=== PATIENT | female | born 1935 | race Caucasian/White ===

== ENCOUNTER 2016-07-03 17:02 | Emergency (ER) | payer MEDICARE ==
[~2016-07-03] VITALS: Ht 165.1 cm; Wt 60.0 kg
[~2016-07-03 17:02] MED LIST: AMBI5TAB; EZET10; SYNT25TA; TAB-TAB
[2016-07-03 17:05] VITALS: BP 126/72; PULSE 97; RESP 18; TEMP 98.5; O2SAT 95
[2016-07-03] MEDS ORDERED: MULTTAB67 PO (17:19)
[2016-07-03] MEDS ORDERED: LEVO25TA4 PO (17:19)
[2016-07-03] MEDS ORDERED: ZETI10TA5 PO (17:19)
[2016-07-03] MEDS ORDERED: BIOT10TA PO (17:25)
--- NOTE | 2016-07-03 17:30 | PD ---
HPI Chief Complaint: Fall Time Seen by Provider: 17:22 Travel History International Travel<30 days: No Contact w/Intl Traveler<30days: No Traveled to known affect area: No History of Present Illness HPI 80-year-old female presents to the emergency room for evaluation of left foot and pelvis pain after mechanical trip and fall earlier today. Patient states she was wearing her slippers in the garage and slipped on the concrete falling to the left. She denies hitting her head or loss of consciousness. Patient states she was able to get up and go inside. Shortly after she started developing left foot pain. She took 2 Aleve and applied ice to the area. Since this morning, her foot has been increasingly swelling. She denies paresthesias. States she only has pain with ambulation. Patient also reports bilateral anterior pelvis pain. States it feels like a pulled muscle. She denies being on blood thinners. She has history of pelvic fracture several years ago. PFSH Past Medical History High Cholesterol: Yes Thyroid Disease: Yes Past Surgical History Other Surgery: Yes (THYROIDECTOMY 1992) Social History Alcohol Use: Yes (1 GLASS OF WINE DAILY) Tobacco Use: No Substance Use: No Allergies-Medications (Allergen,Severity, Reaction): Coded Allergies: No Known Allergies (Verified , 07/03/16) Reported Meds & Prescriptions Reported Meds & Active Scripts Active Reported Biotin 10 Mg Tab 10 Mg PO DAILY Multiple Vitamin 1 Tab 1 Tab PO DAILY Zetia (Ezetimibe) 10 Mg Tab 10 Mg PO DAILY Levothyroxine (Levothyroxine Sodium) 25 Mcg Tab 25 Mcg PO DAILY Review of Systems Except as stated in HPI: all other systems reviewed are Neg Physical Exam Narrative GENERAL: Well-nourished, well-developed female in no acute distress. Afebrile. SKIN: Focused skin assessment warm/dry. There is a large hematoma on the left lateral foot over the fifth metatarsal. HEAD: Normocephalic. EYES: No scleral icterus. No injection or drainage. NECK: Supple, trachea midline. No JVD or lymphadenopathy. CARDIOVASCULAR: Regular rate and rhythm without murmurs, gallops, or rubs. RESPIRATORY: Breath sounds equal bilaterally. No accessory muscle use. EXTREMITY: Left foot moderately tender to palpation over the fifth metatarsal. Full range of motion in all joints. Moderate edema over the fifth metatarsal. 2+ dorsalis pedis pulse and less than 2 second capillary refill distally. Data Data Last Documented VS Vital Signs Date Time Temp Pulse Resp B/P Pulse Ox O2 Delivery O2 Flow Rate FiO2 07/03/16 17:05 98.5 97 18 126/72 95 Orders Pelvis, Ap Only (Routine) (07/03/16 ) Foot, Complete ([id number]) (07/03/16 ) Splint Or Brace Apply/Monitor (07/03/16 18:21) Fiberglass Short Leg Splint Ad (07/03/16 ) [facility] Medical Decision Making Medical Screen Exam Complete: Yes Emergency Medical Condition: Yes Medical Record Reviewed: Yes Differential Diagnosis Foot sprain versus hematoma versus fracture versus contusion Narrative Course 80-year-old female presents to the emergency room dilation of left lateral foot pain and pelvic pain after mechanical trip and fall earlier today. Patient adamantly denies hitting head or loss of consciousness. She is not on blood thinners. Pain developed shortly after injury. Physical exam reveals a large hematoma and mild tenderness to palpation over the left fifth metatarsal. Left lower extremity is neurovascularly intact with 2+ dorsalis pedis pulse and less than 2 second capillary refill distally. She has been ambulatory with pain since onset of symptoms. She also reports bilateral anterior pelvic pain that "feels like a pulled muscle." X-ray of the pelvis is negative. X-ray of the left foot shows minimal displaced left fifth metatarsal fracture. Patient placed in a postop shoe. According to up-to-date, patient can be weightbearing as tolerated. She was told to follow up with a puff iron operator or orthopedist within 1 week. Patient told to return for worsening symptoms. She understands and agrees to plan. Diagnosis Primary Impression: Fracture of fifth metatarsal bone of left foot Qualified Code: S92.355A - Closed nondisplaced fracture of fifth metatarsal bone of left foot, initial encounter Additional Impression: Strain of pelvis Qualified Code: S39.013A - Strain of pelvis, initial encounter Referrals: Miguel Santoyo DPM, James McMaster MD Patient Instructions: Foot Fracture in Adults (ED), General Instructions Additional Instructions: Rest and drink plenty of fluids. Elevate and ice for 20 minutes a time. Weightbearing as tolerated. Tylenol for pain. Follow up with puff iron operator or orthopedist. Return for worsening symptoms. Med/Other Pt SpecificInfo: Prescription(s) given Disposition: 01 DISCHARGE HOME Condition: Stable Elida Hodges July 03, 2016 17:30
--- NOTE | 2016-07-03 18:18 | RADHPO ---
EXAM DATE/TIME: 07/03/2016 17:48 [facility] COMPARISON: No previous studies available for comparison. INDICATIONS : Fell, pain bilateral groin area MEDICAL HISTORY : Pelvic fracture SURGICAL HISTORY : None. ENCOUNTER: Initial ACUITY: 1 day PAIN SCORE: 5/10 LOCATION: Bilateral pelvis FINDINGS: There is no acute fracture or dislocation of the bony pelvis. Mild degenerative changes and scoliosi s of the lower lumbar spine are noted. Arthritic changes are noted involving the symphysis pubis. CONCLUSION: 1. No acute fracture or dislocation. 2. Mild degenerative changes and scoliosis of the lower lumbar spine. 3. Arthritic changes involving the symphysis pubis. Chalo Edgar MD on July 03, 2016 at 18:14 Board Certified Radiologist. This report was verified electronically.
--- NOTE | 2016-07-03 18:19 | RADHPO ---
EXAM DATE/TIME: 07/03/2016 17:51 [facility] COMPARISON: No previous studies available for comparison. INDICATIONS : Fall, left foot pain MEDICAL HISTORY : Pelvic fracture SURGICAL HISTORY : None. ENCOUNTER: Initial ACUITY: 1 day PAIN SCORE: 9/10 LOCATION: Left foot FINDINGS: There is an acute mildly displaced fracture involving the base of the left 5th metatarsal. Soft-tiss ue swelling is noted alongside the fracture. Mild degenerative changes are noted involving the left 1st metatarsophalangeal joint. CONCLUSION: 1. Acute mildly displaced fracture involving the base of the left 5th metatarsal with associated sof t-tissue swelling. 2. Mild degenerative changes involving the left 1st metatarsophalangeal joint. Chalo Edgar MD on July 03, 2016 at 18:15 Board Certified Radiologist. This report was verified electronically.
== END 2016-07-03 19:09 | disposition home or self-care (01) ==
LOC: PHEFT 17:02
DX: S92.355A Nondisplaced fracture of fifth metatarsal bone, left foot, initial encounter for closed fracture (principal); W18.09XA Striking against other object with subsequent fall, initial encounter; Y93.01 Activity, walking, marching and hiking; Y92.015 Private garage of single-family (private) house as the place of occurrence of the external cause; Y99.8 Other external cause status
CPT/HCPCS: 29515; 72170; 73630

== ENCOUNTER 2016-09-22 18:11 | Emergency (ER) | payer MEDICARE ==
[~2016-09-22] VITALS: Ht 165.1 cm; Wt 59.9 kg
[~2016-09-22 18:11] MED LIST changes: -AMBI5TAB; +BIOT10TA PO; -EZET10; +LEVO25TA4 PO; +MULTTAB67 PO; -SYNT25TA; -TAB-TAB; +ZETI10TA5 PO
[2016-09-22 18:19] VITALS: BP 174/74; PULSE 69; RESP 16; TEMP 98.5; O2SAT 96
--- NOTE | 2016-09-22 20:03 | PD ---
HPI Chief Complaint: Abdominal Pain Time Seen by Provider: 19:42 Travel History International Travel<30 days: No Contact w/Intl Traveler<30days: No Traveled to known affect area: No History of Present Illness HPI This 81-year-old female says she is having pain in her pelvis. A fall in June. At that time she had a lot of pain in pelvis. She broke her foot and landed up in the boot for several weeks. She saw Dr. Mack and was sent for physical therapy for the pain in her pelvis. This seemed to help and she improved. Recently she started doing some exercises in a pool and since then the pain is More severe. She has pain in either side of the pelvis and that seems to the aggravated when she pushes directly on the symphysis. She recently had an ultrasound of her gallbladder which was normal. She recently has had to walk with a cane which she has not had it before. PFSH Past Medical History High Cholesterol: Yes Diminished Hearing: No Immunizations Current: Yes Thyroid Disease: Yes ?: Not Past Surgical History Other Surgery: Yes (THYROIDECTOMY 1992) Social History Alcohol Use: Yes (1 GLASS OF WINE DAILY) Tobacco Use: No Substance Use: No Allergies-Medications (Allergen,Severity, Reaction): Coded Allergies: No Known Allergies (Verified , 09/22/16) Reported Meds & Prescriptions Reported Meds & Active Scripts Active Reported Preservision-Lutein (Multiple Vitamins W/ Minerals) 1 Cap 1 Cap PO DAILY Calcium 600 with Vitamin D (Calcium Carbonate-Cholecalciferol) 600-400 mg-Unit Tab 1 Tab PO DAILY Biotin 10 Mg Tab 10 Mg PO DAILY Multiple Vitamin 1 Tab 1 Tab PO DAILY Levothyroxine (Levothyroxine Sodium) 25 Mcg Tab 25 Mcg PO DAILY Review of Systems General / Constitutional: No: Fever, Chills Eyes: No: Diploplia, Blurred Vision HENT: No: Headaches Cardiovascular: No: Chest Pain or Discomfort Respiratory: No: Cough, Shortness of Breath Gastrointestinal: No: Nausea, Vomiting Genitourinary: No: Urgency, Frequency Musculoskeletal: Positive: Myalgias, Pain Skin: No Rash, No Dryness Neurologic: No: Weakness Physical Exam Narrative GENERAL: Well-developed female SKIN: Focused skin assessment warm/dry. HEAD: Atraumatic. Normocephalic. EYES: Pupils equal and round. No scleral icterus. No injection or drainage. ENT: No nasal bleeding or discharge. Mucous membranes pink and moist. NECK: Trachea midline. No JVD. CARDIOVASCULAR: Regular rate and rhythm. No murmur appreciated. RESPIRATORY: No accessory muscle use. Clear to auscultation. Breath sounds equal bilaterally. GASTROINTESTINAL: Abdomen soft, non-tender, nondistended. Hepatic and splenic margins not palpable. MUSCULOSKELETAL: No obvious deformities. No clubbing. No cyanosis. No edema. There is no midline tenderness of the back. There is mild tenderness to palpation pelvis. I'm able to flex and rotate both hips without pain. NEUROLOGICAL: Awake and alert. No obvious cranial nerve deficits. Motor grossly within normal limits. Normal speech. PSYCHIATRIC: Appropriate mood and affect; insight and judgment normal. Data Data Last Documented VS Vital Signs Date Time Temp Pulse Resp B/P Pulse Ox O2 Delivery O2 Flow Rate FiO2 09/22/16 21:10 65 18 113/50 94 Room Air 09/22/16 18:19 98.5 Orders Pelvis, Ap Only (Routine) (09/22/16 19:59) MDM Medical Decision Making Medical Screen Exam Complete: Yes Emergency Medical Condition: Yes Medical Record Reviewed: Yes Differential Diagnosis Differential includes arthritic changes of the pelvis, old fracture, Narrative Course Patient had an x-ray in June which showed some arthritic changes. She is now having increasing pain. It may be that she had an occult fracture at that time. X-ray was repeated and there does appear to be some progression of the degenerative changes apparent on the previous x-ray Diagnosis Primary Impression: Arthritis of pelvic region Referrals: Chavo Mack MD Disposition: 01 DISCHARGE HOME Condition: Stable Jean Claude Kennedy MD Sep 22, 2016 20:03
[2016-09-22 20:05] VITALS: BP 148/66; PULSE 70; RESP 18; O2SAT 96
[2016-09-22] MEDS ORDERED: PRESCAP6 PO (20:07)
[2016-09-22] MEDS ORDERED: CALC1TAB87 PO (20:07)
[2016-09-22 21:10] VITALS: BP 113/50; PULSE 65; RESP 18; O2SAT 94
--- NOTE | 2016-09-22 22:02 | RADRPT ---
EXAM DATE/TIME: 09/22/2016 20:30 [facility] COMPARISON: No previous studies available for comparison. INDICATIONS : Patient fell in June and has had pain for the past week in her entire pelvis region. MEDICAL HISTORY : None. SURGICAL HISTORY : None. ENCOUNTER: Initial ACUITY: 1 day PAIN SCORE: 5/10 LOCATION: Bilateral Pelvis FINDINGS: Remote fracture noted at pubic symphysis involving left pubic bone and left inferior and superior denise i. Osteopenia. No acute fracture identified. CONCLUSION: 1. Remote fracture of left pubic bone and pubic rami. No acute fracture identified. Rashard Russ MD on September 22, 2016 at 21:59 Board Certified Radiologist. This report was verified electronically.
[2016-09-22 22:05] VITALS: BP 119/68
== END 2016-09-22 22:05 | disposition home or self-care (01) ==
LOC: PHED 18:11
DX: M19.90 Unspecified osteoarthritis, unspecified site (principal)
CPT/HCPCS: 72170; 99283